=== PATIENT | female | born 1960 | race Caucasian/White ===

== ENCOUNTER 2017-08-14 23:53 | Emergency (ER) | payer OTHER ==
[2017-08-15] MEDS: SOD CHLORIDE 0.9% 500 ML IV (03:28)
[2017-08-15 04:44] LABS: ADD MAN DIFF? NO
[2017-08-15 04:47] LABS: WHITE BLOOD COUNT 11.7 10^3/ul (4.8-10.8)
[2017-08-15 04:47] LABS: BASOPHIL # 0.1 10^3/ul (0.0-0.1); BASOPHILS % 0.4 % (0.0-2.0); EOSINOPHILS # 0.4 10^3/ul (0.0-0.5); EOSINOPHILS % 3.5 % (0.0-7.0); HEMOGLOBIN 11.3 g/dl (12.0-16.0); LYMPHOCYTES # 3.1 10^3/ul (0.8-2.9); LYMPHOCYTES % 26.4 % (15.0-51.0); MEAN CORPUSCULAR HEMOGLOBIN 28.8 pg (29.0-33.0); MEAN CORPUSCULAR HGB CONC 33.2 g/dl (32.0-37.0); MEAN CORPUSCULAR VOLUME 86.5 fl (82.0-101.0); MEAN PLATELET VOLUME 11.7 fl (7.4-10.4); MONOCYTE # 0.8 10^3/ul (0.3-0.9); MONOCYTES % 6.9 % (0.0-11.0); NEUTROPHIL # 7.3 10^3/ul (1.6-7.5); NEUTROPHILS % 62.5 % (39.0-77.0); PLATELET COUNT 292 10^3/UL (140-415); RED BLOOD COUNT 3.93 10^6/ul (4.20-5.40); RED CELL DISTRIBUTION WIDTH 12.6 % (11.5-14.5)
[2017-08-15 05:04] LABS: ALANINE AMINOTRANSFERASE 26 IU/L (13-69); ALBUMIN 3.8 g/dl (3.3-4.9); ALBUMIN/GLOBULIN RATIO 1.15; ALKALINE PHOSPHATASE 96 IU/L (42-121); ANION GAP 13 (8-16); ASPARTATE AMINO TRANSFERASE 23 IU/L (15-46); BLOOD UREA NITROGEN 18 mg/dl (7-20); CALCIUM 9.5 mg/dl (8.4-10.2); CARBON DIOXIDE 31 mmol/L (21-31); CHLORIDE 102 mmol/L (97-110); CREATININE 0.69 mg/dl (0.44-1.00); GLUCOSE 187 mg/dl (70-220); LIPASE 27 U/L (23-300); POTASSIUM 3.7 mmol/L (3.5-5.1); SODIUM 142 mmol/L (135-144); TOTAL PROTEIN 7.1 g/dl (6.1-8.1)
[2017-08-15] MEDS: ONDANSETRON 4 MG INJ IV (07:05)
[2017-08-15] MEDS: morphine 4 MG/ML VIAL IV (07:08)
[2017-08-15] MEDS: ASPIRIN 81 MG TAB PO (07:36)
== END 2017-08-15 07:54 | disposition home or self-care (01) ==
LOC: FTE 23:53 → E/R 08-15 07:54
DX: M79.605 Pain in left leg (principal); E10.9 Type 1 diabetes mellitus without complications; Z79.4 Long term (current) use of insulin
CPT/HCPCS: 36415; 80053; 83690; 85025; 87040; 93971; 99285-25

== ENCOUNTER 2017-09-05 23:46 | Emergency (ER) | payer OTHER | END 2017-09-06 04:14 | disposition home or self-care (01) | LOC: FTE 23:46 | DX: M79.604 Pain in right leg (principal); E10.9 Type 1 diabetes mellitus without complications | CPT/HCPCS: 93971; 99284-25 ==

== ENCOUNTER 2019-02-07 21:22 | Emergency (ER) | payer OTHER ==
[2019-02-08] MEDS: ALBUTEROL 0.083% (NEB) 2.5 MG/3 ML AMP HHN (00:32)
[2019-02-08 00:54] LABS: ADD UMIC NO; UR ASCORBIC ACID NEGATIVE (NEGATIVE); UR BILIRUBIN (Dip) NEGATIVE (NEGATIVE); UR BLOOD (Dip) NEGATIVE (NEGATIVE); UR CLARITY CLEAR (CLEAR); UR COLOR STRAW (YELLOW); UR GLUCOSE (Dip) 3+ mg/dL (NEGATIVE); UR KETONES (Dip) NEGATIVE (NEGATIVE); UR LEUKOCYTE ESTERASE (Dip) NEGATIVE Leu/ul (NEGATIVE); UR NITRITE (Dip) NEGATIVE (NEGATIVE); UR SPECIFIC GRAVITY (Dip) 1.025 (1.003-1.030); UR TOTAL PROTEIN (Dip) NEGATIVE (NEGATIVE); UR UROBILINOGEN (Dip) NEGATIVE (NEGATIVE)
[2019-02-08] MEDS: TRIAMCINOLONE ACET 0.1% 15 GM CR TOP (01:42)
== END 2019-02-08 05:08 | disposition home or self-care (01) ==
LOC: FTE 21:22
DX: J45.901 Unspecified asthma with (acute) exacerbation (principal); I87.2 Venous insufficiency (chronic) (peripheral); R35.0 Frequency of micturition
CPT/HCPCS: 81003; 87086; 94664; 99283-25

== ENCOUNTER 2019-02-14 02:23 | Emergency (ER) | payer OTHER ==
[2019-02-14] MEDS: HYDROCODONE/APAP (5/325) TAB PO (04:49)
[2019-02-14] MEDS: IBUPROFEN 800 MG TAB PO (05:15)
[2019-02-14] MEDS: ASPIRIN (EC) 81 MG TAB PO (10:33)
== END 2019-02-14 10:44 | disposition home or self-care (01) ==
LOC: FTE 02:23
DX: S80.212A Abrasion, left knee, initial encounter (principal); S20.212A Contusion of left front wall of thorax, initial encounter; E03.9 Hypothyroidism, unspecified; W01.0XXA Fall on same level from slipping, tripping and stumbling without subsequent striking against object, initial encounter; Y92.410 Unspecified street and highway as the place of occurrence of the external cause
CPT/HCPCS: 71100; 73562; 99284-25

== ENCOUNTER 2019-03-06 04:12 | Emergency (ER) | payer OTHER | END 2019-03-06 09:04 | disposition home or self-care (01) | LOC: E/R 04:12 | DX: R42 Dizziness and giddiness (principal); R53.1 Weakness; E10.9 Type 1 diabetes mellitus without complications; Z79.4 Long term (current) use of insulin | CPT/HCPCS: 80048; 82962; 84484; 85025; 93005; 99284-25 ==